=== PATIENT | female | born 1945 | race Caucasian/White ===

== ENCOUNTER → 2021-02-24 | Outpatient (CLI) | payer OTHER | LOC: SJCVCIMAG 09:34 | PROVIDERS: ATTEND Nuclear Medicine Nuclear Cardiology | DX: E11.622 Type 2 diabetes mellitus with other skin ulcer (principal); L97.519 Non-pressure chronic ulcer of other part of right foot with unspecified severity; I70.203 Unspecified atherosclerosis of native arteries of extremities, bilateral legs; E11.51 Type 2 diabetes mellitus with diabetic peripheral angiopathy without gangrene; E11.69 Type 2 diabetes mellitus with other specified complication; M86.9 Osteomyelitis, unspecified; I48.91 Unspecified atrial fibrillation; M77.52 Other enthesopathy of left foot and ankle; I10 Essential (primary) hypertension; M25.775 Osteophyte, left foot; Z89.422 Acquired absence of other left toe(s); Z79.01 Long term (current) use of anticoagulants; Z79.84 Long term (current) use of oral hypoglycemic drugs; Z79.899 Other long term (current) drug therapy ==

== ENCOUNTER → 2021-03-04 | Outpatient (CLI) | payer OTHER ==
[~2021-03-04] VITALS: Ht 172.7 cm; Wt 99.8 kg
[~2021-03-04] MED LIST: DILTIAZEM ER180 M2 PO; ELIQUIS5 MG PO; LAC-HYDRIN FIV226 GM TOP; METFORMIN HCL500 M3 PO; NEURONTIN300 MG PO; PLAVIX 75 MG TA75 MG PO; SSD CREAM 1% 5050 GM TOP; TOPROL XL50 MG PO
[2021-03-04 07:36] VITALS: BP 146/83
[2021-03-04 07:47] LABS: HEMATOCRIT 40.8 % (37.0-47.0); HEMOGLOBIN 13.3 gm/dL (12.0-15.0); MCH 29.6 pg (26.0-34.0); MCHC 32.6 g/dL (28.0-37.0); MCV 90.9 fL (80.0-100.0); RBC 4.5 mil/uL (4.20-5.00); RDW 14.6 % (10.5-14.5); WBC 5.8 thou/uL (4.0-11.0)
[2021-03-04 07:53] LABS: CALCIUM 9.2 mg/dL (8.5-10.1); CREATININE 0.9 mg/dL (0.6-1.0); POTASSIUM 4.6 mmol/L (3.5-5.1)
== END | disposition home or self-care (01) ==
LOC: CATH 06:41
PROVIDERS: ATTEND Nuclear Medicine Nuclear Cardiology
DX: E11.51 Type 2 diabetes mellitus with diabetic peripheral angiopathy without gangrene (principal); I70.248 Atherosclerosis of native arteries of left leg with ulceration of other part of lower leg; L97.929 Non-pressure chronic ulcer of unspecified part of left lower leg with unspecified severity; I10 Essential (primary) hypertension; I70.1 Atherosclerosis of renal artery; I48.91 Unspecified atrial fibrillation; Z98.890 Other specified postprocedural states; Z79.899 Other long term (current) drug therapy; Z79.01 Long term (current) use of anticoagulants

== ENCOUNTER → 2021-03-11 | Outpatient (CLI) | payer OTHER ==
[~2021-03-11] VITALS: Ht 172.7 cm; Wt 100.0 kg
[~2021-03-11] MED LIST changes: +ANTI-ITCH28 G1 TOP; +BACTRIM DS TAB1 EAC1 PO; +EFFIENT10 MG PO
[2021-03-11 08:44] VITALS: BP 126/76
== END | disposition home or self-care (01) ==
LOC: CATH 07:48
PROVIDERS: ATTEND Nuclear Medicine Nuclear Cardiology
DX: E11.51 Type 2 diabetes mellitus with diabetic peripheral angiopathy without gangrene (principal); I70.238 Atherosclerosis of native arteries of right leg with ulceration of other part of lower leg; L97.919 Non-pressure chronic ulcer of unspecified part of right lower leg with unspecified severity; I10 Essential (primary) hypertension; I25.10 Atherosclerotic heart disease of native coronary artery without angina pectoris; I48.91 Unspecified atrial fibrillation; E66.9 Obesity, unspecified; Z98.890 Other specified postprocedural states; Z79.899 Other long term (current) drug therapy; Z79.01 Long term (current) use of anticoagulants

== ENCOUNTER → 2021-06-18 | Outpatient (CLI) | payer OTHER | LOC: SJCVCIMAG 13:26 | PROVIDERS: ATTEND Nuclear Medicine Nuclear Cardiology | DX: I70.203 Unspecified atherosclerosis of native arteries of extremities, bilateral legs (principal) ==